=== PATIENT | male | born 1975 | race Caucasian/White ===

== ENCOUNTER 2017-12-24 22:43 | Emergency (ER) | payer SELFPAY ==
[2017-12-25 00:04] LABS: Hemoglobin 14.7 g/dL (14.0-18.0); Mean Corpuscular Hemoglobin 31.5 pg (27.0-31.0); Mean Corpuscular Volume 92.6 fL (78.0-98.0); Mean Platelet Volume 7.7 fL (7.4-10.4); Platelet Count 149 thou/uL (130-400); RBC Distribution Width 13.8 % (11.5-14.5); Red Blood Cell (RBC) Count 4.68 mill/uL (4.70-6.10); White Blood Cell (WBC) Count 10.1 thou/uL (4.8-10.8)
[2017-12-25 00:22] LABS: Band 3 % (5-11); Eosinophils 2 % (0-10); Lymphocytes 20 % (21-51); MDiff Complete? YES; Monocytes 6 % (0-10); Neutrophil 69 % (42-75)
[2017-12-25] MEDS ORDERED: Ketorolac Tromethamine 30 MG/ML VIAL ONE (00:22)
[2017-12-25 00:25] LABS: ALT (SGPT) 49 U/L (8-55); AST (SGOT) 59 U/L (5-34); Albumin 2.9 g/dL (3.5-5.0); Alkaline Phosphatase 108 U/L (40-150); Anion Gap 13 mmol/L (10-20); BUN (Urea Nitrogen) 11 mg/dL (8.9-20.6); Bilirubin, Total 0.9 mg/dL (0.2-1.2); Calc. Creatinine Clearance 0 mL/min (70-130); Calcium 9.1 mg/dL (7.8-10.44); Carbon Dioxide 24 mmol/L (22-29); Chloride 97 mmol/L (98-107); Estimated GFR-MDRD Greater than 90; Globulin 4.8 g/dL (2.4-3.5); Glucose 172 mg/dL (70-105); Potassium 3.1 mmol/L (3.5-5.1); Protein, Total 7.7 g/dL (6.0-8.3); Sodium 131 mmol/L (136-145)
[2017-12-25] MEDS ORDERED: Morphine 4 MG/ML VIAL ONE (02:43)
[2017-12-25] MEDS ORDERED: Mag-Al 1200 mg/1200 mg/30 ML UDCUP ONE (02:43)
[2017-12-25] MEDS ORDERED: Lidocaine Viscous Sol 2% 15 ml UD Cup ONE (02:43)
--- NOTE | 2017-12-25 07:53 | RAD ---
CHEST 1 VIEW: Date: 12/25/17 HISTORY: Cough. COMPARISON: None. FINDINGS: Multifocal air space opacities. Heart size enlarged. No pneumothorax. IMPRESSION: Extensive multifocal air space opacities concerning for multifocal pneumonia. POS: [facility]
--- NOTE | 2017-12-25 08:46 | CT ---
PRELIMINARY REPORT/[facility]/EMERGENTY AFTER-HOURS PROCEDURE CT Abdomen and Pelvis With Intravenous Contrast CLINICAL HISTORY: 42 years old, male; C/O fever, chills, body aches for a couple of days. Also productive cough and epi gastric abdominal pain. Recently discharged from [facility] in [place] for sepsis with no source. Discharged with clindamycin and hydrocodone, neither of which he has filled due to financial issues. Pt smokes 1 pack / day. TECHNIQUE: Axial computed tomography images of the abdomen and pelvis with intravenous contrast. Coronal reformatted images were created and reviewed. COMPARISON: No relevant prior studies available. FINDINGS: Lung bases: Areas of "ground glass" infiltrate within each lung. Pleural space: Minimal bilateral pleural fluid with bilateral posterior lung base compressive atelect asis. ABDOMEN: Liver: Unremarkable. No mass. Gallbladder and bile ducts: Status post cholecystectomy. No ductal dilation. Pancreas: Unremarkable. No mass. No ductal dilation. Spleen: Unremarkable. No splenomegaly. Adrenals: Unremarkable. No mass. Kidneys and ureters: Unremarkable. No solid mass. No hydronephrosis. Stomach and bowel: Scattered colon diverticuli without evidence of diverticulitis. No obstruction. PELVIS: Appendix: No findings to suggest acute appendicitis. Bladder: Unremarkable. No mass. Reproductive: Unremarkable as visualized. ABDOMEN and PELVIS: Intraperitoneal space: Unremarkable. No free air. No significant fluid collection. Bones/joints: Spinal degenerative changes. No acute fracture. No dislocation. Soft tissues: Small fat-containing umbilical hernia. Vasculature: Unremarkable. No abdominal aortic aneurysm. Lymph nodes: A few scattered small retroperitoneal and pelvic lymph nodes. IMPRESSION: 1. Areas of "ground glass" infiltrate within each lung. 2. Minimal bilateral pleural fluid with bilateral posterior lung base compressive atelectasis. 3. No acute intra-abdominal or pelvic process. 4. Scattered colon diverticuli without evidence of diverticulitis. Thank you for allowing us to participate in the care of your patient. Dictated and Authenticated by: Julius Birmingham MD 12/25/2017 4:32 AM Central Time ([place] & [place]) FINAL REPORT EMERGENCY AFTER HOURS CT ABDOMEN AND PELVIS PERFORMED WITH CONTRAST ENHANCEMENT: Date: 12/25/17 HISTORY: Abdominal pain, fever, chills, and productive cough. FINDINGS: There is ground-glass opacity seen in both lung bases, which is more central in location. There are t iny effusions, right slightly larger than left. Liver shows fatty change. Spleen and pancreas regions are unremarkable. Gallbladder has been removed. Right and left adrenal glands, and right and left kidneys are normal in size. There are some small pe riaortic lymph nodes not significantly enlarged. No significant mesenteric adenopathy. CT of pelvis was performed with contrast enhancement. There is some sigmoid diverticulosis noted. The re is no adenopathy, mass, or free fluid. Appendix region appears unremarkable. Appendix itself is so mewhat difficult to definitely visualize. No free fluid or mass. Review of osseous structures show arthritic changes of the spine and hips. IMPRESSION: 1. Centrally located ground-glass opacities in both lung bases raises the possibility of pulmonary e audrey. There are tiny effusions. 2. Fatty changes of liver. 3. Postop cholecystectomy change. This report is in agreement with the preliminary report issued by [facility]. POS: [id number]
[2017-12-25] MEDS ORDERED: ISOVUE-370 76%-LOCM 1 ML ONE (14:59)
== END 2017-12-25 05:00 | disposition home or self-care (01) ==
LOC: ERS 22:43
DX: R10.13 Epigastric pain (principal); E11.9 Type 2 diabetes mellitus without complications; F17.210 Nicotine dependence, cigarettes, uncomplicated
CPT/HCPCS: 36415; 71045; 74177; 80053; 83605; 85025; 87040; 93005; 96361; 96374; 96375; J1885; J2270